=== PATIENT | female | born 1935 | race Caucasian/White ===

== ENCOUNTER 2022-08-29 08:46 | Inpatient (IN) | payer OTHER ==
[~2022-08-29] VITALS: Ht 167.6 cm; Wt 60.8 kg
[2022-08-29 08:50] VITALS: BP_SYST 172
[2022-08-29 09:39] LABS: BASOPHILS % (AUTO) 0.2 % (0.0-2.0); HEMATOCRIT 39.3 % (36-48); HEMOGLOBIN 12.7 g/dL (12.0-16.0); LYMPHOCYTES # (AUTO) 0.5 K/uL (1.0-5.5); LYMPHOCYTES % (AUTO) 4.5 % (20.5-51.5); MEAN CORPUSCULAR HEMOGLOBIN 27 pg (27-31); MEAN CORPUSCULAR HGB CONC 32 % (32-36); MEAN CORPUSCULAR VOLUME 83 fL (79.0-98.0); MONOCYTES # (AUTO) 0.2 K/uL (0.0-1.0); MONOCYTES % (AUTO) 1.9 % (1.7-9.3); NEUTROPHILS # (AUTO) 11.4 K/uL (1.8-7.7); NEUTROPHILS % (AUTO) 93.4 % (40.0-70.0); PLATELET COUNT (AUTO) 284 K/uL (130-430); RED BLOOD CELL COUNT(AUTO) 4.72 MIL/uL (4.2-6.2); RED CELL DISTRIBUTION WIDTH 13.7 % (9.0-15.0); WHITE BLOOD COUNT (AUTO) 12.2 K/uL (4.8-10.8)
[2022-08-29 09:58] LABS: PROTHROMBIN TIME 10.2 SECS (9.5-12.5)
[2022-08-29 10:05] LABS: ANION GAP 9 (5-15); CALCIUM 9.3 mg/dL (8.4-11.0); CHLORIDE 99 mmol/L (98-107); GLUCOSE 157 mg/dL (70-99); UREA NITROGEN, BLOOD 18 mg/dL (8-21)
[2022-08-29 10:16] LABS: ALANINE AMINOTRANSFERASE 24 U/L (12-78); ALBUMIN 3.8 g/dL (3.4-4.8); ALCOHOL, BLOOD 4 mg/dL (<10); ASPARTATE AMINOTRANSFERASE 19 U/L (10-37); TOTAL BILIRUBIN 0.4 mg/dL (0.0-1.0)
[2022-08-29 10:19] LABS: ACETAMINOPHEN < 1 ug/mL (1-30); C-REACTIVE PROTEIN QUANT < 0.2 mg/dL (0-0.5)
[2022-08-29 10:34] LABS: ACETONE, SERUM NEGATIVE (NEGATIVE)
[2022-08-29] MEDS ORDERED: LORazepam 2 MG/ML VIAL IVP ONE (11:15)
[2022-08-29] MEDS ORDERED: levETIRAcetam 1,000 MG in NS 90 ML IV ONE (11:15)
[2022-08-29 12:02] LABS: BILIRUBIN,URINE NEGATIVE (NEGATIVE); BLOOD, URINE NEGATIVE (NEGATIVE); COLOR,URINE YELLOW (YELLOW); GLUCOSE,URINE NEGATIVE (NEGATIVE); KETONES,URINE TRACE (NEGATIVE); LEUKOCYTE ESTERASE ,URINE TRACE (NEGATIVE); NITRITE, URINE NEGATIVE (NEGATIVE); PH,URINE 7.5 (5.0-8.0); PROTEIN URINE TRACE (NEGATIVE); UROBILINOGEN,URINE 0.2 (0.2-1.0)
[2022-08-29 12:17] LABS: BARBITURATE, URINE NEGATIVE (NEG <=200); BENZODIAZEPINE, URINE NEGATIVE (NEG <=150); CANNABINOID, URINE NEGATIVE (NEG <=50); COCAINE, URINE NEGATIVE (NEG <=150); METHAMPHETAMINES SCREEN,URINE NEGATIVE (NEG <=500); OPIATE, URINE NEGATIVE (NEG <=100); PHENCYCLIDINE SCREEN,URINE NEGATIVE (NEG <=25); UR TRICYCLIC ANTIDEPRESSANTS NEGATIVE (NEG <=300); URINE AMPHETAMINE NEGATIVE (NEG <=500); URINE METHADONE NEGATIVE (NEG <=200); URINE OXYCODONE SCREEN NEGATIVE (NEG <=100); URINE PROPOXYPHENE SCREEN NEGATIVE (NEG <=300)
[2022-08-29 12:18] LABS: CLARITY/URINE HAZY (CLEAR)
[2022-08-29 12:19] LABS: BACTERIA,URINE MODERATE /HPF (None Seen); RBC,URINE 0-3 /HPF (0-3)
[2022-08-29 12:20] LABS: MUCUS,URINE 1+ /LPF (None Seen)
[2022-08-29] MEDS ORDERED: D5/0.45 NS 1,000 ML IV ONE (13:45)
[2022-08-29] MEDS ORDERED: ACET325T53 PO (16:26)
[2022-08-29] MEDS ORDERED: FAMO40OR4 PO (16:26)
[2022-08-29] MEDS ORDERED: OSCD500 PO (16:26)
[2022-08-29] MEDS ORDERED: GABA-529 (16:41)
[2022-08-29] MEDS ORDERED: LOSA50TA3 PO (16:41)
[2022-08-29] MEDS ORDERED: SERT25TA PO (16:46)
[2022-08-29] MEDS ORDERED: MELA1TAB17 PO (16:46)
[2022-08-29] MEDS ORDERED: VERA120C2 PO (16:47)
[2022-08-29] MEDS ORDERED: LORazepam 2 MG/ML VIAL IVP PRN (21:15)
[2022-08-29] MEDS ORDERED: ONDANSETRON HCL 4 MG/2 ML VIAL IVP PRN (21:15)
[2022-08-29] MEDS ORDERED: LABETALOL 100 MG/ 20ML VIAL IVP PRN (22:00)
[2022-08-29 23:26] VITALS: BP_SYST 150
[2022-08-30] VITALS (7 sets, daily range): BP systolic 128–164
[2022-08-30 07:10] LABS: BASOPHILS % (AUTO) 0.2 % (0.0-2.0); EOSINOPHILS % (AUTO) 0.1 % (0.0-4.0); HEMOGLOBIN 11.5 g/dL (12.0-16.0); LYMPHOCYTES # (AUTO) 1.2 K/uL (1.0-5.5); LYMPHOCYTES % (AUTO) 8.7 % (20.5-51.5); MEAN CORPUSCULAR HEMOGLOBIN 27 pg (27-31); MEAN CORPUSCULAR HGB CONC 33 % (32-36); MEAN CORPUSCULAR VOLUME 83 fL (79.0-98.0); MONOCYTES # (AUTO) 1.6 K/uL (0.0-1.0); MONOCYTES % (AUTO) 10.9 % (1.7-9.3); NEUTROPHILS # (AUTO) 11.5 K/uL (1.8-7.7); NEUTROPHILS % (AUTO) 80.1 % (40.0-70.0); PLATELET COUNT (AUTO) 252 K/uL (130-430); RED BLOOD CELL COUNT(AUTO) 4.21 MIL/uL (4.2-6.2); RED CELL DISTRIBUTION WIDTH 13.7 % (9.0-15.0); WHITE BLOOD COUNT (AUTO) 14.4 K/uL (4.8-10.8)
[2022-08-30 07:24] LABS: ANION GAP 8 (5-15); CALCIUM 8.7 mg/dL (8.4-11.0); CHLORIDE 101 mmol/L (98-107); CREATININE 0.51 mg/dL (0.55-1.30); GLUCOSE 101 mg/dL (70-99); UREA NITROGEN, BLOOD 18 mg/dL (8-21)
[2022-08-30] MEDS ORDERED: IPRATROPIUM BROM 0.5 MG/2.5 ML VIAL.NEB (ATROVENT) INH PRN (11:00)
[2022-08-30] MEDS ORDERED: ALBUTEROL SULFATE 0.083% 2.5 MG/3 ML VIAL.NEB INH PRN (11:00)
[2022-08-30] MEDS ORDERED: ONDANSETRON HCL 4 MG/2 ML VIAL IVP PRN (11:00)
[2022-08-30] MEDS: cefTRIAXone 1 GM IVPB PREMIX 50 ML IV SCH (12:15)
[2022-08-30] MEDS ORDERED: AZITHROMYCIN 500 MG in NS 250 ML IV SCH (13:00)
[2022-08-30] MEDS: D5/0.45 NS 1,000 ML IV SCH (18:11)
[2022-08-30] MEDS ORDERED: LOSARTAN POTASSIUM 50 MG TABLET (COZAAR) PO ONE (20:45)
[2022-08-30] MEDS: metroNIDAZOLE 250 mg/NS 50 ML IV SCH (21:07)
[2022-08-31 00:32] VITALS: BP_SYST 145
[2022-08-31] MEDS: D5/0.45 NS 1,000 ML IV SCH ×3 (04:38→18:22)
[2022-08-31] MEDS: metroNIDAZOLE 250 mg/NS 50 ML IV SCH ×3 (05:49→21:41)
[2022-08-31 07:18] LABS: BASOPHILS % (AUTO) 0.5 % (0.0-2.0); EOSINOPHILS % (AUTO) 0.3 % (0.0-4.0); HEMATOCRIT 35.6 % (36-48); HEMOGLOBIN 11.9 g/dL (12.0-16.0); LYMPHOCYTES # (AUTO) 1.3 K/uL (1.0-5.5); LYMPHOCYTES % (AUTO) 13.2 % (20.5-51.5); MEAN CORPUSCULAR HEMOGLOBIN 28 pg (27-31); MEAN CORPUSCULAR HGB CONC 33 % (32-36); MEAN CORPUSCULAR VOLUME 83 fL (79.0-98.0); MONOCYTES # (AUTO) 0.9 K/uL (0.0-1.0); MONOCYTES % (AUTO) 9.6 % (1.7-9.3); NEUTROPHILS # (AUTO) 7.4 K/uL (1.8-7.7); NEUTROPHILS % (AUTO) 76.4 % (40.0-70.0); PLATELET COUNT (AUTO) 276 K/uL (130-430); RED BLOOD CELL COUNT(AUTO) 4.28 MIL/uL (4.2-6.2); RED CELL DISTRIBUTION WIDTH 13.4 % (9.0-15.0); WHITE BLOOD COUNT (AUTO) 9.7 K/uL (4.8-10.8)
[2022-08-31 08:05] VITALS: BP_SYST 178
[2022-08-31 08:40] LABS: ALANINE AMINOTRANSFERASE 19 U/L (12-78); ANION GAP 10 (5-15); ASPARTATE AMINOTRANSFERASE 31 U/L (10-37); CALCIUM 8.5 mg/dL (8.4-11.0); CHLORIDE 105 mmol/L (98-107); CREATININE 0.32 mg/dL (0.55-1.30); GLUCOSE 117 mg/dL (70-99); TOTAL BILIRUBIN 0.5 mg/dL (0.0-1.0); UREA NITROGEN, BLOOD 9 mg/dL (8-21)
[2022-08-31] MEDS: LOSARTAN POTASSIUM 50 MG TABLET (COZAAR) PO SCH (08:51)
[2022-08-31] MEDS ORDERED: LOSARTAN POTASSIUM 50 MG TABLET (COZAAR) PO SCH (10:00)
[2022-08-31] MEDS ORDERED: ACETAMINOPHEN 325 MG TABLET PO PRN (10:00)
[2022-08-31] MEDS ORDERED: FAMOTIDINE 20 MG TABLET PO ONE (11:00)
[2022-08-31] MEDS ORDERED: SERTRALINE HCL 50 MG TABLET PO ONE (11:00)
[2022-08-31 11:10] VITALS: BP_SYST 157
[2022-08-31] MEDS: cefTRIAXone 1 GM IVPB PREMIX 50 ML IV SCH (12:00)
[2022-08-31 15:45] VITALS: BP_SYST 161
[2022-08-31] MEDS: GABAPENTIN 100 MG CAPSULE PO SCH (18:18)
[2022-08-31 20:00] VITALS: BP_SYST 158
[2022-08-31] MEDS ORDERED: MELATONIN 5 MG TABLET PO SCH (21:00)
[2022-08-31] MEDS: VERAPAMIL HCL 120 MG TABLET.SA PO SCH (21:39)
[2022-08-31] MEDS: CALCIUM CARBONATE/VITAMIN D3 1 TAB TABLET PO SCH (21:40)
[2022-09-01 00:17] VITALS: BP_SYST 136
[2022-09-01] MEDS: D5/0.45 NS 1,000 ML IV SCH (03:20)
[2022-09-01] MEDS: metroNIDAZOLE 250 mg/NS 50 ML IV SCH ×2 (05:51→14:59)
[2022-09-01 08:00] VITALS: BP_SYST 154
[2022-09-01 08:16] LABS: BASOPHILS # (AUTO) 0.1 K/uL (0.0-0.2); BASOPHILS % (AUTO) 0.5 % (0.0-2.0); EOSINOPHILS # (AUTO) 0.1 K/uL (0.0-0.4); EOSINOPHILS % (AUTO) 0.9 % (0.0-4.0); HEMATOCRIT 36.4 % (36-48); LYMPHOCYTES # (AUTO) 1.3 K/uL (1.0-5.5); LYMPHOCYTES % (AUTO) 10.7 % (20.5-51.5); MEAN CORPUSCULAR HEMOGLOBIN 27 pg (27-31); MEAN CORPUSCULAR HGB CONC 33 % (32-36); MEAN CORPUSCULAR VOLUME 83 fL (79.0-98.0); MONOCYTES # (AUTO) 1.3 K/uL (0.0-1.0); MONOCYTES % (AUTO) 10.5 % (1.7-9.3); NEUTROPHILS # (AUTO) 9.6 K/uL (1.8-7.7); NEUTROPHILS % (AUTO) 77.4 % (40.0-70.0); PLATELET COUNT (AUTO) 281 K/uL (130-430); RED BLOOD CELL COUNT(AUTO) 4.38 MIL/uL (4.2-6.2); RED CELL DISTRIBUTION WIDTH 13.3 % (9.0-15.0); WHITE BLOOD COUNT (AUTO) 12.4 K/uL (4.8-10.8)
[2022-09-01 08:42] LABS: ANION GAP 8 (5-15); C-REACTIVE PROTEIN QUANT 0.6 mg/dL (0-0.5); CALCIUM 8.9 mg/dL (8.4-11.0); CHLORIDE 105 mmol/L (98-107); CREATININE 0.39 mg/dL (0.55-1.30); GLUCOSE 122 mg/dL (70-99); UREA NITROGEN, BLOOD 9 mg/dL (8-21)
[2022-09-01] MEDS: VERAPAMIL HCL 120 MG TABLET.SA PO SCH (08:48)
[2022-09-01] MEDS: LOSARTAN POTASSIUM 50 MG TABLET (COZAAR) PO SCH (08:49)
[2022-09-01] MEDS: CALCIUM CARBONATE/VITAMIN D3 1 TAB TABLET PO SCH (08:49)
[2022-09-01] MEDS ORDERED: LOSARTAN POTASSIUM 50 MG TABLET (COZAAR) PO SCH (09:00)
[2022-09-01] MEDS ORDERED: FAMOTIDINE 20 MG TABLET PO SCH (09:00)
[2022-09-01] MEDS ORDERED: SERTRALINE HCL 50 MG TABLET PO SCH (09:00)
[2022-09-01] MEDS ORDERED: POTASSIUM CHLORIDE 20 MEQ TAB.PRT.SR PO ONE (10:45)
[2022-09-01 10:46] LABS: ERYTHROCYTE SEDIMENTATION RATE 9 MM/HR (0-20)
[2022-09-01] MEDS: cefTRIAXone 1 GM IVPB PREMIX 50 ML IV SCH (11:39)
[2022-09-01 12:32] VITALS: BP_SYST 140; BP_SYST 154
[2022-09-01] MEDS ORDERED: NORMAL SALINE 5 ML DISP.SYRIN IVF SCH (14:00)
[2022-09-01 16:31] VITALS: BP_SYST 145
[2022-09-01 16:52] VITALS: BP_SYST 145
[2022-09-01] MEDS ORDERED: ROCPM1 IV (16:52)
[2022-09-01] MEDS ORDERED: FLAPM500 IV (16:52)
[2022-09-01] MEDS: GABAPENTIN 100 MG CAPSULE PO SCH (18:05)
== END 2022-09-01 21:23 | DRG 871 ==
LOC: SED 08:46 → STU 13:36
PROVIDERS: ADMIT Preventive Medicine Preventive Medicine/Occupational Environmental Medicine; ATTEND Preventive Medicine Preventive Medicine/Occupational Environmental Medicine
DX: A41.9 Sepsis, unspecified organism (principal); J69.0 Pneumonitis due to inhalation of food and vomit; N39.0 Urinary tract infection, site not specified; E87.20 Acidosis, unspecified; Z20.822 Contact with and (suspected) exposure to COVID-19; I10 Essential (primary) hypertension; E78.5 Hyperlipidemia, unspecified; F03.90 Unspecified dementia, unspecified severity, without behavioral disturbance, psychotic disturbance, mood disturbance, and anxiety; B96.89 Other specified bacterial agents as the cause of diseases classified elsewhere; D64.9 Anemia, unspecified; E87.6 Hypokalemia; E88.09 Other disorders of plasma-protein metabolism, not elsewhere classified; G40.909 Epilepsy, unspecified, not intractable, without status epilepticus; R73.9 Hyperglycemia, unspecified; Z88.8 Allergy status to other drugs, medicaments and biological substances
CPT/HCPCS: 36415; 70450-TC; 71045; 76376; 80048; 80053; 80307; 81000; 82009; 82140; 82550; 83605; 83735; 83880; 84484; 85025; 85610-TC; 85651-TC; 85730-TC; 86140; 87040; 87081; 87086; 92610-GN; 93005; 93306; 95816; 97110-GP; 97112-GP; 97530-GP; 99285; G0378; G0480; G0481; G0482; J0456; J0696; J1953; J2060; J3490; J7050

== ENCOUNTER 2022-09-26 16:51 | Inpatient (IN) | payer OTHER ==
[~2022-09-26] VITALS: Ht 160 cm; Wt 65.3 kg
[~2022-09-26 16:51] MED LIST: ACET325T53 PO; FAMO40OR4 PO; FLAPM500 IV; GABA-529; LOSA50TA3 PO; MELA1TAB17 PO; OSCD500 PO; ROCPM1 IV; SERT25TA PO; VERA120C2 PO
[2022-09-26 16:53] VITALS: BP_SYST 156
[2022-09-26] MEDS ORDERED: MULT-300 PO (17:15)
[2022-09-26] MEDS ORDERED: LACT10SO7 PO (17:15)
[2022-09-26] MEDS ORDERED: ALBU2.5V7 INH (17:15)
[2022-09-26] MEDS ORDERED: ONDA-8 TL (17:15)
[2022-09-26] MEDS ORDERED: VITD2000 PO (17:15)
--- NOTE | 2022-09-26 17:15 | NUR ---
Medication reconciliation completed with information provided by [facility]. Any prior medication reconciliation on file was reviewed and corrected.
--- NOTE | 2022-09-26 17:20 | NUR ---
PT BIBA AWAKE AND CONFUSED, AOX1. PT COMING FROM [facility] AFTER AN SEIZURE IN THE FACILITY.
--- NOTE | 2022-09-26 17:25 | NUR ---
MD DR LAW AT BEDSIDE
[2022-09-26 17:43] LABS: BASOPHILS % (AUTO) 0.1 % (0.0-2.0); HEMATOCRIT 39.8 % (36-48); HEMOGLOBIN 13.1 g/dL (12.0-16.0); LYMPHOCYTES # (AUTO) 0.4 K/uL (1.0-5.5); LYMPHOCYTES % (AUTO) 2.5 % (20.5-51.5); MEAN CORPUSCULAR HEMOGLOBIN 28 pg (27-31); MEAN CORPUSCULAR HGB CONC 33 % (32-36); MEAN CORPUSCULAR VOLUME 84 fL (79.0-98.0); MONOCYTES # (AUTO) 0.3 K/uL (0.0-1.0); MONOCYTES % (AUTO) 2.1 % (1.7-9.3); NEUTROPHILS # (AUTO) 15.5 K/uL (1.8-7.7); NEUTROPHILS % (AUTO) 95.3 % (40.0-70.0); PLATELET COUNT (AUTO) 285 K/uL (130-430); RED BLOOD CELL COUNT(AUTO) 4.74 MIL/uL (4.2-6.2); RED CELL DISTRIBUTION WIDTH 14.1 % (9.0-15.0); WHITE BLOOD COUNT (AUTO) 16.3 K/uL (4.8-10.8)
[2022-09-26 17:54] LABS: ANION GAP 10 (5-15); CALCIUM 9.9 mg/dL (8.4-11.0); CHLORIDE 98 mmol/L (98-107); CREATININE 0.47 mg/dL (0.55-1.30); GLUCOSE 168 mg/dL (70-99); UREA NITROGEN, BLOOD 13 mg/dL (8-21)
[2022-09-26 17:56] LABS: PROTHROMBIN TIME 10.4 SECS (9.5-12.5)
[2022-09-26 18:11] LABS: ALANINE AMINOTRANSFERASE 30 U/L (12-78); ALBUMIN 3.7 g/dL (3.4-4.8); ALCOHOL, BLOOD 3 mg/dL (<10); ASPARTATE AMINOTRANSFERASE 29 U/L (10-37); TOTAL BILIRUBIN 0.5 mg/dL (0.0-1.0)
[2022-09-26 18:28] LABS: ACETAMINOPHEN < 1 ug/mL (1-30); C-REACTIVE PROTEIN QUANT < 0.2 mg/dL (0-0.5)
[2022-09-26 18:50] LABS: ACETONE, SERUM NEGATIVE (NEGATIVE)
[2022-09-26 19:08] LABS: BILIRUBIN,URINE NEGATIVE (NEGATIVE); BLOOD, URINE 1+ (NEGATIVE); COLOR,URINE YELLOW (YELLOW); GLUCOSE,URINE NEGATIVE (NEGATIVE); KETONES,URINE 1+ (NEGATIVE); LEUKOCYTE ESTERASE ,URINE 1+ (NEGATIVE); NITRITE, URINE NEGATIVE (NEGATIVE); PROTEIN URINE 1+ (NEGATIVE); UROBILINOGEN,URINE 0.2 (0.2-1.0)
[2022-09-26] MEDS ORDERED: PIPERACILLIN/TAZO 4.5GM/DEX-IS 100 ML IV SCH (19:30)
[2022-09-26] MEDS ORDERED: PIPERACILLIN/TAZO 4.5GM/DEX-IS 100 ML IV ONE (19:30)
[2022-09-26 19:31] LABS: CLARITY/URINE HAZY (CLEAR)
[2022-09-26 19:35] LABS: BARBITURATE, URINE NEGATIVE (NEG <=200); BENZODIAZEPINE, URINE NEGATIVE (NEG <=150); CANNABINOID, URINE NEGATIVE (NEG <=50); COCAINE, URINE NEGATIVE (NEG <=150); METHAMPHETAMINES SCREEN,URINE NEGATIVE (NEG <=500); OPIATE, URINE NEGATIVE (NEG <=100); PHENCYCLIDINE SCREEN,URINE NEGATIVE (NEG <=25); UR TRICYCLIC ANTIDEPRESSANTS NEGATIVE (NEG <=300); URINE AMPHETAMINE NEGATIVE (NEG <=500); URINE METHADONE NEGATIVE (NEG <=200); URINE OXYCODONE SCREEN NEGATIVE (NEG <=100); URINE PROPOXYPHENE SCREEN NEGATIVE (NEG <=300)
[2022-09-26 19:36] LABS: BACTERIA,URINE FEW /HPF (None Seen); RBC,URINE NONE SEEN /HPF (0-3)
[2022-09-26 19:37] LABS: MUCUS,URINE None Seen /LPF (None Seen)
[2022-09-26] MEDS ORDERED: LORazepam 2 MG/ML VIAL IVP PRN (19:45)
[2022-09-26] MEDS ORDERED: PIPERACILLIN/TAZOBACTAM 4.5 GM/VIAL (ZOSYN) IV ONE (19:47)
[2022-09-26] MEDS ORDERED: VANCOMYCIN HCL 750 MG in NS 250 ML IV ONE (20:00)
--- NOTE | 2022-09-26 20:21 | NUR ---
Admit bed requested Patient will be admitted to care of . Admitted to TELE unit. Diagnosis : SEPSIS/ SEIZURE DISORDER Inpatient (Yes or No) Y Observation (Yes or No) N Orientation concerns or request close to nursing station (Yes or No) N Covid Status : PENDING From Home (Yes or if No enter name of facility) [facility] Med Rec Completed (Yes of No) Y
--- NOTE | 2022-09-26 20:22 | NUR ---
DAUGHTER ANAPATRICIA AT BEDSIDE. CELL
[2022-09-26] MEDS: D5/0.45 NS 1,000 ML IV SCH (20:37)
--- NOTE | 2022-09-26 23:50 | NUR ---
Patient will be admitted to care of MD SLOAN. Admitted to TELE unit. Will go to room 13B. Complete and up to date summary report printed. SBAR report given at bedside to receiving RN Dl with opportunity for questions.
[2022-09-27] VITALS (7 sets, daily range): BP systolic 120–156
--- NOTE | 2022-09-27 00:30 | NUR ---
RECEIVED REPORT FROM ASHLEY PANIAGUA ADMITTING NURSE, PATIENT IN BED SLEEPING, NO DISTRESS NOTED, NO SEIZURE ACTIVITY NOTED, COMFORT MAINTAINED, LEFT ARM IV NOT PATENT, REMOVED AND RESTARTED 20G LEFT LOWER ARM, GOOD BLOOD RETURN, PATIENT CONFUSED, PATIENT DEAF PER DAUGHTER, PATIENT DAUGHTER CALLED AND SPOKE WITH NURSE, SKIN INTACT, MRSA NARES COMPLETED, SEIZURES WITH SIDE RAILS PADDED AND BED ALARM ON
[2022-09-27] MEDS: D5/0.45 NS 1,000 ML IV SCH ×3 (02:44→22:53)
--- NOTE | 2022-09-27 02:51 | NUR ---
PATIENT WITH EYES CLOSED, NO DISTRESS NOTED, COMFORT MAINTAINED, NO SEIZURE ACTIVITY NOTED
--- NOTE | 2022-09-27 03:02 | NUR ---
ADMISSION ASSESSMENT COMPLETE AND MRSA NASAL SWAB COMPLETE
--- NOTE | 2022-09-27 06:28 | NUR ---
NO SEIZURE ACTIVITY NOTED, PATIENT SLEEPING, REPOSITION Q2HRS AND PRN, TOTAL CARE WITH ADL, NPO PER ORDERS
--- NOTE | 2022-09-27 07:30 | NUR ---
OPENING NOTE Patient in bed resting with no apparent distress or pain. Patient calm and cooperative with her care. Patient is nonverbal, and has a hx of deafness. Breathing is nonlabored and even. No seizure activity noted, seizure precautions are in place. All needs met at this time and comfort measures provided. Safety checks made.
[2022-09-27] MEDS ORDERED: ACETAMINOPHEN 325 MG TABLET PO PRN (11:30)
[2022-09-27] MEDS ORDERED: ONDANSETRON 4 MG ODT TAB TL PRN (11:30)
[2022-09-27] MEDS ORDERED: ONDANSETRON HCL 4 MG/2 ML VIAL IVP PRN (11:30)
[2022-09-27] MEDS ORDERED: ALBUTEROL SULFATE 0.083% 2.5 MG/3 ML VIAL.NEB INH PRN (11:30)
--- NOTE | 2022-09-27 11:43 | NUR ---
CONSULTATION PAGED7 REASON FOR CONSULTATION:SEPSIS WAS CONSULT CALLED?Y PERSON WHO WAS NOTIFIED:AMIRA CONSULTING PHYSICIAN:AZALEA MANUEL STATISTICAL SECRETARY SPECIALTY:ID STATISTICAL SECRETARY PHONE NUMBER:[phone] REQUESTING PHYSICIAN:BRANDON MAXWELL
[2022-09-27] MEDS ORDERED: LOSARTAN POTASSIUM 50 MG TABLET (COZAAR) PO ONE ×2 (11:45→12:45)
[2022-09-27] MEDS ORDERED: SERTRALINE HCL 50 MG TABLET PO ONE (13:00)
[2022-09-27] MEDS: CHOLECALCIFEROL (VITAMIN D3) 2,000 UNIT TABLET PO ONE ×2 (13:30→16:38)
--- NOTE | 2022-09-27 13:39 | NUR ---
SPOKE WITH DAUGHTER Spoke with patient's daughters and provided an update on the patient. Verbalized understanding of the plan of care.
[2022-09-27] MEDS ORDERED: metroNIDAZOLE 500 mg/NS 100 ML PREMIX IV SCH (14:00)
[2022-09-27] MEDS ORDERED: cefTRIAXone 1 GM IVPB PREMIX 50 ML IV SCH (14:00)
[2022-09-27] MEDS ORDERED: metroNIDAZOLE 500 mg/NS 100 mL IVPB IV SCH (14:00)
[2022-09-27] MEDS: CEFTRIAXONE SOD 1 GM/ D5W 50 ML IV SCH ×2 (14:59)
[2022-09-27] MEDS: GABAPENTIN 100 MG CAPSULE PO SCH ×2 (16:38→16:52)
[2022-09-27] MEDS: LACTULOSE 20 GM/30 ML UDC PO SCH ×2 (16:52→23:16)
--- NOTE | 2022-09-27 16:52 | NUR ---
MEDICATION REFUSAL Patient adamantly refused medications. Medications were crushed in a small bite of pudding. Patient refused to open her mouth to receive the spoon. Patient shook her head no. Attempted to educate the patient by writing on a paper, her preferred method of communication, but patient continued to refuse.
[2022-09-27] MEDS ORDERED: VERAPAMIL HCL 120 MG TABLET.SA PO ONE (17:45)
--- NOTE | 2022-09-27 17:55 | NUR ---
ST EVALUATION COMPLETED. ST TX NOT INDICATED AT THIS TIME. RECOMMEND PO DIET OF PUREE/THIN LIQUID. PT LIKES TO FEED HERSELF BUT WILL LIKELY NEED ENCOURAGEMENT AND ASSISTANCE. 1:1 ASSISTANCE FOR MEALS AND FULL ASPIRATION PRECAUTIONS
[2022-09-27 18:23] LABS: BASOPHILS # (AUTO) 0.1 K/uL (0.0-0.2); BASOPHILS % (AUTO) 0.3 % (0.0-2.0); EOSINOPHILS % (AUTO) 0.1 % (0.0-4.0); LYMPHOCYTES # (AUTO) 1.4 K/uL (1.0-5.5); LYMPHOCYTES % (AUTO) 9.5 % (20.5-51.5); MEAN CORPUSCULAR HEMOGLOBIN 27 pg (27-31); MEAN CORPUSCULAR HGB CONC 32 % (32-36); MEAN CORPUSCULAR VOLUME 84 fL (79.0-98.0); MONOCYTES # (AUTO) 1.9 K/uL (0.0-1.0); MONOCYTES % (AUTO) 13.1 % (1.7-9.3); NEUTROPHILS # (AUTO) 11.1 K/uL (1.8-7.7); PLATELET COUNT (AUTO) 241 K/uL (130-430); RED BLOOD CELL COUNT(AUTO) 4.06 MIL/uL (4.2-6.2); RED CELL DISTRIBUTION WIDTH 13.9 % (9.0-15.0); WHITE BLOOD COUNT (AUTO) 14.4 K/uL (4.8-10.8)
--- NOTE | 2022-09-27 18:59 | NUR ---
CLOSING NOTE Patient resting in bed, no sign of distress or pain. Patient continues to be nonverbal with difficulty communicating. Patient has refused her medications because she is unwilling to open her mouth. Unable to communicate effectively with the patient due to hx of deafness and her eyeglasses being at home and her unable to read the communication notes. Patient's daughter states she will bring the glasses to the hospital when she visits. Family has been updated on the plan of care, verbalized understanding. Patient's breathing is nonlabored and even on room air; patient refused to wear her nasal cannula. All needs met at this time and safety checks made. Will endorse to overnight babysitter nurse.
[2022-09-27] MEDS ORDERED: VERAPAMIL HCL 120 MG TABLET.SA PO SCH (21:00)
--- NOTE | 2022-09-27 22:00 | NUR ---
PATIENT DAUGHTER AT BEDSIDE, NO DISTRESS NOTED, COMFORT MAINTAINED, PATIENT PULLED LEFT ARM IV OUT, RESITED AND PLACED A LEFT ARM IV, PATIENT INCONTINENT, PERICARE GIVEN, DAUGHTER BOUGHT PATIENTS GLASSES AND WHITE BOARD WITH MARKER TO COMMUNICATE, PATIENT LEGALLY DEAF, PATIENT TOOK ALL PO MEDICATIONS WHOLE WITH JUICE, PATIENT ALERT AND ORIENTED TO SELF AND PLACE, CONFUSED REGARDING HER RELATIONSHIP TO DAUGHTER, BED ALARM SET
[2022-09-27] MEDS: levETIRAcetam 500 MG TABLET PO SCH (22:52)
[2022-09-27] MEDS: metroNIDAZOLE 500 mg/NS 100 ML IV SCH (22:52)
[2022-09-27] MEDS: FAMOTIDINE 20 MG TABLET PO SCH (22:52)
[2022-09-27] MEDS: CALCIUM CARBONATE/VITAMIN D3 1 TAB TABLET PO SCH (22:53)
[2022-09-27] MEDS: MELATONIN 5 MG TABLET PO SCH (23:16)
[2022-09-28 01:10] VITALS: BP_SYST 182
[2022-09-28 05:00] VITALS: BP_SYST 150
[2022-09-28] MEDS: LACTULOSE 20 GM/30 ML UDC PO SCH ×3 (06:00→18:00)
--- NOTE | 2022-09-28 06:00 | NUR ---
NO DISTRESS NOTED, COMFORT MAINTAINED, PATIENT SLEPT ALL NIGHT
[2022-09-28 07:01] LABS: BASOPHILS # (AUTO) 0.1 K/uL (0.0-0.2); BASOPHILS % (AUTO) 0.4 % (0.0-2.0); HEMATOCRIT 34.5 % (36-48); HEMOGLOBIN 11.8 g/dL (12.0-16.0); LYMPHOCYTES # (AUTO) 1.1 K/uL (1.0-5.5); LYMPHOCYTES % (AUTO) 8.3 % (20.5-51.5); MEAN CORPUSCULAR HEMOGLOBIN 28 pg (27-31); MEAN CORPUSCULAR HGB CONC 34 % (32-36); MEAN CORPUSCULAR VOLUME 83 fL (79.0-98.0); MONOCYTES # (AUTO) 1.6 K/uL (0.0-1.0); MONOCYTES % (AUTO) 12.3 % (1.7-9.3); NEUTROPHILS # (AUTO) 10.3 K/uL (1.8-7.7); PLATELET COUNT (AUTO) 229 K/uL (130-430); RED BLOOD CELL COUNT(AUTO) 4.14 MIL/uL (4.2-6.2); RED CELL DISTRIBUTION WIDTH 14.2 % (9.0-15.0); WHITE BLOOD COUNT (AUTO) 13.1 K/uL (4.8-10.8)
[2022-09-28 07:51] LABS: ERYTHROCYTE SEDIMENTATION RATE 41 MM/HR (0-20)
[2022-09-28 09:00] LABS: ALANINE AMINOTRANSFERASE 30 U/L (12-78); ANION GAP 7 (5-15); ASPARTATE AMINOTRANSFERASE 34 U/L (10-37); C-REACTIVE PROTEIN QUANT 1.5 mg/dL (0-0.5); CALCIUM 8.6 mg/dL (8.4-11.0); CHLORIDE 102 mmol/L (98-107); GLUCOSE 115 mg/dL (70-99); TOTAL BILIRUBIN 0.4 mg/dL (0.0-1.0); UREA NITROGEN, BLOOD 10 mg/dL (8-21)
[2022-09-28] MEDS: levETIRAcetam 500 MG TABLET PO SCH (10:05)
[2022-09-28] MEDS: VERAPAMIL HCL 120 MG TABLET.SA PO SCH (10:06)
[2022-09-28] MEDS: MULTIVITS,CA,MINERALS/IRON/FA 1 TABLET PO SCH (10:07)
[2022-09-28] MEDS: CHOLECALCIFEROL (VITAMIN D3) 2,000 UNIT TABLET PO SCH (10:07)
[2022-09-28] MEDS: LOSARTAN POTASSIUM 50 MG TABLET (COZAAR) PO SCH (10:08)
[2022-09-28] MEDS: SERTRALINE HCL 50 MG TABLET PO SCH (10:09)
[2022-09-28] MEDS: metroNIDAZOLE 500 mg/NS 100 ML IV SCH ×2 (10:10→22:26)
[2022-09-28] MEDS ORDERED: POTASSIUM CHLORIDE 20 MEQ TAB.PRT.SR PO ONE (11:00)
[2022-09-28] MEDS ORDERED: LORazepam 2 MG/ML VIAL IVP ONE (11:30)
[2022-09-28 12:21] VITALS: BP_SYST 167
--- NOTE | 2022-09-28 15:19 | NUR ---
RN DID NOT CLEAR PATIENT FOR PT PATIENT IS STILL SEDATED FROM EEG. WILL TRY AGAIN TOMORROW. Addendum: 09/28/22 at 1731 by Kym Perkins PT PHYSICAL THERAPY CO-SIGN The Physical Therapy Progress Notes documented by System Archive Analyst have been reviewed. Reviewed/Co-Signed by: Kym Perkins PT Documentation Done by:BUD RADFORD PTA
[2022-09-28] MEDS: CEFTRIAXONE SOD 1 GM/ D5W 50 ML IV SCH ×2 (16:38)
[2022-09-28] MEDS: GABAPENTIN 100 MG CAPSULE PO SCH (17:00)
[2022-09-28 17:12] VITALS: BP_SYST 151
[2022-09-28] MEDS: CALCIUM CARBONATE/VITAMIN D3 1 TAB TABLET PO SCH ×2 (18:36→22:07)
[2022-09-28] MEDS ORDERED: levETIRAcetam 500 MG TABLET PO ONE (19:30)
[2022-09-28] MEDS: D5/0.45 NS 1,000 ML IV SCH ×2 (19:44→22:54)
[2022-09-28 20:00] VITALS: BP_SYST 148
[2022-09-28] MEDS: FAMOTIDINE 20 MG TABLET PO SCH (22:08)
[2022-09-28] MEDS: MELATONIN 5 MG TABLET PO SCH (22:51)
[2022-09-29] VITALS: BP_SYST 172
[2022-09-29] MEDS: LACTULOSE 20 GM/30 ML UDC PO SCH ×4 (00:16→17:14)
[2022-09-29] MEDS ORDERED: LISINOPRIL 10 MG TABLET (PRINIVIL) PO SCH (00:45)
[2022-09-29] MEDS: D5/0.45 NS 1,000 ML IV SCH (06:31)
[2022-09-29 08:00] VITALS: BP_SYST 159
[2022-09-29 08:22] LABS: ANION GAP 6 (5-15); BASOPHILS # (AUTO) 0.1 K/uL (0.0-0.2); BASOPHILS % (AUTO) 0.3 % (0.0-2.0); C-REACTIVE PROTEIN QUANT 8.3 mg/dL (0-0.5); CALCIUM 8.7 mg/dL (8.4-11.0); CHLORIDE 99 mmol/L (98-107); CREATININE 0.48 mg/dL (0.55-1.30); EOSINOPHILS % (AUTO) 0.1 % (0.0-4.0); GLUCOSE 123 mg/dL (70-99); HEMATOCRIT 37.9 % (36-48); HEMOGLOBIN 12.7 g/dL (12.0-16.0); LYMPHOCYTES # (AUTO) 1.1 K/uL (1.0-5.5); LYMPHOCYTES % (AUTO) 6.5 % (20.5-51.5); MEAN CORPUSCULAR HEMOGLOBIN 28 pg (27-31); MEAN CORPUSCULAR HGB CONC 33 % (32-36); MEAN CORPUSCULAR VOLUME 83 fL (79.0-98.0); MONOCYTES # (AUTO) 1.8 K/uL (0.0-1.0); MONOCYTES % (AUTO) 10.3 % (1.7-9.3); NEUTROPHILS # (AUTO) 14.3 K/uL (1.8-7.7); NEUTROPHILS % (AUTO) 82.8 % (40.0-70.0); PLATELET COUNT (AUTO) 236 K/uL (130-430); RED BLOOD CELL COUNT(AUTO) 4.57 MIL/uL (4.2-6.2); RED CELL DISTRIBUTION WIDTH 13.9 % (9.0-15.0); UREA NITROGEN, BLOOD 7 mg/dL (8-21); WHITE BLOOD COUNT (AUTO) 17.2 K/uL (4.8-10.8)
[2022-09-29] MEDS: VERAPAMIL HCL 120 MG TABLET.SA PO SCH (08:24)
[2022-09-29] MEDS: SERTRALINE HCL 50 MG TABLET PO SCH (08:31)
[2022-09-29] MEDS: HYDROCHLOROTHIAZIDE 25 MG TABLET (HCTZ) PO SCH (08:31)
[2022-09-29] MEDS: LOSARTAN POTASSIUM 50 MG TABLET (COZAAR) PO SCH (08:31)
[2022-09-29] MEDS: CHOLECALCIFEROL (VITAMIN D3) 2,000 UNIT TABLET PO SCH (08:31)
[2022-09-29] MEDS: CALCIUM CARBONATE/VITAMIN D3 1 TAB TABLET PO SCH ×2 (08:31→20:56)
[2022-09-29] MEDS: MULTIVITS,CA,MINERALS/IRON/FA 1 TABLET PO SCH (08:31)
[2022-09-29 09:27] LABS: ERYTHROCYTE SEDIMENTATION RATE 42 MM/HR (0-20)
--- NOTE | 2022-09-29 09:42 | NUR ---
Dietitian Recommendations * If PO improves, consider Puree & CCHO diet. * Consider HB A1c test * Encourage PO intake during meal times. Co-Signed By: Vanessa Cameron, MPH, RD Please refer to Nutrition Assessment for details.
[2022-09-29] MEDS: metroNIDAZOLE 500 mg/NS 100 ML IV SCH (09:43)
[2022-09-29] MEDS ORDERED: POTASSIUM CHLORIDE 20 MEQ TAB.PRT.SR PO ONE (10:30)
[2022-09-29 11:38] VITALS: BP_SYST 155
[2022-09-29] MEDS: CEFTRIAXONE SOD 1 GM/ D5W 50 ML IV SCH ×2 (14:04)
[2022-09-29 15:44] VITALS: BP_SYST 123
[2022-09-29] MEDS: GABAPENTIN 100 MG CAPSULE PO SCH (17:14)
[2022-09-29 20:00] VITALS: BP_SYST 143
[2022-09-29] MEDS: LINEZOLID 300 ML IV SCH (20:55)
[2022-09-29] MEDS: MELATONIN 5 MG TABLET PO SCH (20:55)
[2022-09-29] MEDS: FAMOTIDINE 20 MG TABLET PO SCH (20:56)
[2022-09-30] VITALS: BP_SYST 137
[2022-09-30] MEDS: LACTULOSE 20 GM/30 ML UDC PO SCH ×5 (01:08→23:10)
[2022-09-30 04:00] VITALS: BP_SYST 141
[2022-09-30 07:43] LABS: HEMATOCRIT 35.8 % (36-48); MEAN CORPUSCULAR HEMOGLOBIN 27 pg (27-31); MEAN CORPUSCULAR HGB CONC 34 % (32-36); MEAN CORPUSCULAR VOLUME 82 fL (79.0-98.0); PLATELET COUNT (AUTO) 236 K/uL (130-430); RED BLOOD CELL COUNT(AUTO) 4.38 MIL/uL (4.2-6.2); RED CELL DISTRIBUTION WIDTH 13.6 % (9.0-15.0); WHITE BLOOD COUNT (AUTO) 16.9 K/uL (4.8-10.8)
[2022-09-30 08:12] VITALS: BP_SYST 186
[2022-09-30 08:26] LABS: ALANINE AMINOTRANSFERASE 21 U/L (12-78); ALBUMIN 2.7 g/dL (3.4-4.8); ANION GAP 9 (5-15); ASPARTATE AMINOTRANSFERASE 17 U/L (10-37); C-REACTIVE PROTEIN QUANT 16.4 mg/dL (0-0.5); CHLORIDE 100 mmol/L (98-107); CREATININE 0.46 mg/dL (0.55-1.30); GLUCOSE 114 mg/dL (70-99); TOTAL BILIRUBIN 0.6 mg/dL (0.0-1.0); UREA NITROGEN, BLOOD 6 mg/dL (8-21)
[2022-09-30] MEDS: LOSARTAN POTASSIUM 50 MG TABLET (COZAAR) PO SCH (10:01)
[2022-09-30] MEDS: MULTIVITS,CA,MINERALS/IRON/FA 1 TABLET PO SCH (10:02)
[2022-09-30] MEDS: SERTRALINE HCL 50 MG TABLET PO SCH (10:02)
[2022-09-30] MEDS: VERAPAMIL HCL 120 MG TABLET.SA PO SCH (10:03)
[2022-09-30] MEDS: CALCIUM CARBONATE/VITAMIN D3 1 TAB TABLET PO SCH ×2 (10:04→20:54)
[2022-09-30] MEDS: CHOLECALCIFEROL (VITAMIN D3) 2,000 UNIT TABLET PO SCH (10:09)
[2022-09-30] MEDS: HYDROCHLOROTHIAZIDE 25 MG TABLET (HCTZ) PO SCH (10:13)
[2022-09-30] MEDS: LINEZOLID 300 ML IV SCH ×2 (10:13→20:55)
[2022-09-30 10:29] LABS: ERYTHROCYTE SEDIMENTATION RATE 45 MM/HR (0-20)
[2022-09-30 11:28] VITALS: BP_SYST 162
--- NOTE | 2022-09-30 12:07 | NUR ---
RN MEDICALLY CLEAR PATIENT FOR PT TREATMENT, HOWEVER PATIENT REFUSED TREATMENT.
[2022-09-30 13:02] LABS: BASOPHILS % (MANUAL) 0 % (0-2); EOSINOPHILS % (MANUAL) 0 % (0-7); LYMPHOCYTES % (MANUAL) 4 % (20-46); MONOCYTES % (MANUAL) 11 % (0-11)
[2022-09-30] MEDS: CEFTRIAXONE SOD 1 GM/ D5W 50 ML IV SCH ×2 (13:54)
[2022-09-30 15:22] VITALS: BP_SYST 114
--- NOTE | 2022-09-30 17:11 | NUR ---
Daughter at the bedside and asked if she could talk to Dr. Carroll. Also she asked if the patient can have a Salonpas for her Right neck pain. Advised daughter that we need to inform Dr. Carroll about the Salonpas and also will ask MD to call the patient's daughter to answer some of her questions. Spoke to Dr. Carroll with order to start patient on Lidocaine patch 5% daily and also gave Dr. Carroll the number for the daughter. Order made, noted, and carried out.
[2022-09-30] MEDS ORDERED: LIDOCAINE PATCH 5% 1 EA TP ONE (17:30)
[2022-09-30] MEDS: GABAPENTIN 100 MG CAPSULE PO SCH (18:36)
[2022-09-30 19:00] VITALS: BP_SYST 134
--- NOTE | 2022-09-30 20:00 | NUR ---
PATIENT AWAKE ALERT AND VERBALLY RESPONSIVE.A&O X2 UZBEK SPEAKING. ABLE TO MAKE NEEDS KNOWN. ADMITTED WITH DX: SEPSIS,SEIZURES, AMS, AND UTI. PATIENT HAS HX: DEMENTIA, HTN, BRAIN CA, INSOMNIA, GERD. PATIENT BREATHING EVEN AND NON LABORED. NO SOB/ DYSPNEA. PATIENT DEAF. ASSISTED WITH TOILETING PATIENT INCONTINENT B&B. PATIENT TOLERATING PUREE DIET WELL. NO S/S ASPIRATION. HOB ELEVATED. PT CONTINUED ON IV ATB ORDERED. NO ADVERSE REACTIONS FROM ATB THERAPY NOTED. IV SITE PATENT. IV DRSG CLEAN, DRY, AND INTACT. PATIENT TURNED AND REPOSITIONED Q2H. PATIENT DENIES PAIN. VS WNL. CALL LIGHT IN REACH. BED LOCKED IN LOWEST POSITION. WHITEBOARD/ PAPER/PEN USED TO COMMUNICATE WITH PATIENT. PATIENT RESPONDS WELL. SAFETY MEASURES OBSERVED. ALL NEEDS MET.CONTINUE PLAN OF CARE.
[2022-09-30] MEDS: FAMOTIDINE 20 MG TABLET PO SCH (20:54)
[2022-09-30] MEDS: MELATONIN 5 MG TABLET PO SCH (22:21)
[2022-10-01 00:14] VITALS: BP_SYST 135
[2022-10-01] MEDS ORDERED: Lidocaine Patch 5% TP (03:35)
[2022-10-01] MEDS ORDERED: [UNRECOGNIZED DRUG - CODE] PO (03:35)
[2022-10-01] MEDS ORDERED: HCT25 PO (03:35)
[2022-10-01] MEDS ORDERED: [UNRECOGNIZED DRUG - CODE] IV (03:35)
[2022-10-01 04:00] VITALS: BP_SYST 136
[2022-10-01 04:18] LABS: INR 1.2 (0.8-1.2)
[2022-10-01 06:52] LABS: ANION GAP 4 (5-15); CHLORIDE 97 mmol/L (98-107); CREATININE 0.55 mg/dL (0.55-1.30); GLUCOSE 109 mg/dL (70-99); UREA NITROGEN, BLOOD 7 mg/dL (8-21)
[2022-10-01] MEDS: LACTULOSE 20 GM/30 ML UDC PO SCH ×4 (06:52→23:52)
[2022-10-01 07:02] LABS: BASOPHILS % (AUTO) 0.3 % (0.0-2.0); EOSINOPHILS # (AUTO) 0.1 K/uL (0.0-0.4); EOSINOPHILS % (AUTO) 0.8 % (0.0-4.0); HEMATOCRIT 33.7 % (36-48); HEMOGLOBIN 11.1 g/dL (12.0-16.0); LYMPHOCYTES # (AUTO) 1.4 K/uL (1.0-5.5); LYMPHOCYTES % (AUTO) 9.1 % (20.5-51.5); MEAN CORPUSCULAR HEMOGLOBIN 27 pg (27-31); MEAN CORPUSCULAR HGB CONC 33 % (32-36); MEAN CORPUSCULAR VOLUME 83 fL (79.0-98.0); MONOCYTES # (AUTO) 2.3 K/uL (0.0-1.0); MONOCYTES % (AUTO) 15.1 % (1.7-9.3); NEUTROPHILS # (AUTO) 11.3 K/uL (1.8-7.7); PLATELET COUNT (AUTO) 263 K/uL (130-430); RED BLOOD CELL COUNT(AUTO) 4.06 MIL/uL (4.2-6.2); WHITE BLOOD COUNT (AUTO) 15.1 K/uL (4.8-10.8)
[2022-10-01 07:18] LABS: NEUTROPHILS % (AUTO) 74.7 % (40.0-70.0)
[2022-10-01 08:12] LABS: C-REACTIVE PROTEIN QUANT 11.1 mg/dL (0-0.5)
[2022-10-01 08:22] LABS: ERYTHROCYTE SEDIMENTATION RATE 43 MM/HR (0-20)
[2022-10-01] MEDS: LINEZOLID 300 ML IV SCH ×2 (09:00→20:30)
[2022-10-01] MEDS: MULTIVITS,CA,MINERALS/IRON/FA 1 TABLET PO SCH (09:18)
[2022-10-01] MEDS: CALCIUM CARBONATE/VITAMIN D3 1 TAB TABLET PO SCH ×2 (09:18→20:29)
[2022-10-01] MEDS: SERTRALINE HCL 50 MG TABLET PO SCH (09:18)
[2022-10-01] MEDS: CHOLECALCIFEROL (VITAMIN D3) 2,000 UNIT TABLET PO SCH (09:18)
[2022-10-01] MEDS: HYDROCHLOROTHIAZIDE 25 MG TABLET (HCTZ) PO SCH (09:19)
[2022-10-01] MEDS: LOSARTAN POTASSIUM 50 MG TABLET (COZAAR) PO SCH (09:19)
[2022-10-01] MEDS: VERAPAMIL HCL 120 MG TABLET.SA PO SCH (09:19)
[2022-10-01] MEDS: LIDOCAINE PATCH 5% 1 EA TP SCH (09:20)
[2022-10-01 11:36] VITALS: BP_SYST 144
[2022-10-01] MEDS: CEFTRIAXONE SOD 1 GM/ D5W 50 ML IV SCH ×2 (14:00)
[2022-10-01 16:49] VITALS: BP_SYST 135
[2022-10-01] MEDS: GABAPENTIN 100 MG CAPSULE PO SCH (16:58)
[2022-10-01 20:00] VITALS: BP_SYST 150
[2022-10-01] MEDS ORDERED: POTASSIUM CHLORIDE 20 MEQ TAB.PRT.SR ONE (20:28)
[2022-10-01] MEDS: MELATONIN 5 MG TABLET PO SCH (20:29)
[2022-10-01] MEDS: FAMOTIDINE 20 MG TABLET PO SCH (20:30)
--- NOTE | 2022-10-01 23:42 | NUR ---
Patient in bed resting. Turned repositioned q2. No acute distress noted. Will continue to monitor.
[2022-10-02 00:45] VITALS: BP_SYST 154
[2022-10-02] MEDS: LACTULOSE 20 GM/30 ML UDC PO SCH ×3 (04:43→18:00)
--- NOTE | 2022-10-02 09:05 | NUR ---
INITIAL ROUNDS Received pt awake, confused, pt is deaf and uses an eraser board to communicate in [place]. No IV site noted-pt has order for a PICC line today. HOB elevated for aspiration precautions, Pt being fed her breakfast by nursing staffing coordinator. Pt repositioned with assist of VELVET WEAVER with pillow support and heels off-loaded, skin intact. Side rails up x3, bed alarm on and room across from nursing station for safety. Call light within reach.
[2022-10-02 09:18] VITALS: BP_SYST 157
[2022-10-02] MEDS: CHOLECALCIFEROL (VITAMIN D3) 2,000 UNIT TABLET PO SCH (10:29)
[2022-10-02] MEDS: MULTIVITS,CA,MINERALS/IRON/FA 1 TABLET PO SCH (10:29)
[2022-10-02] MEDS: CALCIUM CARBONATE/VITAMIN D3 1 TAB TABLET PO SCH ×2 (10:30→20:47)
[2022-10-02] MEDS: LOSARTAN POTASSIUM 50 MG TABLET (COZAAR) PO SCH (10:30)
[2022-10-02] MEDS: HYDROCHLOROTHIAZIDE 25 MG TABLET (HCTZ) PO SCH (10:30)
[2022-10-02] MEDS: LIDOCAINE PATCH 5% 1 EA TP SCH (10:31)
[2022-10-02] MEDS: SERTRALINE HCL 50 MG TABLET PO SCH (10:31)
[2022-10-02] MEDS: LINEZOLID 300 ML IV SCH ×2 (10:31→20:47)
[2022-10-02] MEDS: VERAPAMIL HCL 120 MG TABLET.SA PO SCH (10:31)
[2022-10-02 11:47] VITALS: BP_SYST 145
[2022-10-02 11:50] LABS: BASOPHILS # (AUTO) 0.1 K/uL (0.0-0.2); BASOPHILS % (AUTO) 0.6 % (0.0-2.0); EOSINOPHILS # (AUTO) 0.1 K/uL (0.0-0.4); EOSINOPHILS % (AUTO) 0.7 % (0.0-4.0); HEMATOCRIT 33.9 % (36-48); HEMOGLOBIN 11.2 g/dL (12.0-16.0); LYMPHOCYTES # (AUTO) 1.3 K/uL (1.0-5.5); LYMPHOCYTES % (AUTO) 10.1 % (20.5-51.5); MEAN CORPUSCULAR HEMOGLOBIN 27 pg (27-31); MEAN CORPUSCULAR HGB CONC 33 % (32-36); MEAN CORPUSCULAR VOLUME 83 fL (79.0-98.0); MONOCYTES # (AUTO) 1.6 K/uL (0.0-1.0); MONOCYTES % (AUTO) 12.7 % (1.7-9.3); NEUTROPHILS # (AUTO) 9.5 K/uL (1.8-7.7); PLATELET COUNT (AUTO) 290 K/uL (130-430); RED BLOOD CELL COUNT(AUTO) 4.09 MIL/uL (4.2-6.2); RED CELL DISTRIBUTION WIDTH 14.1 % (9.0-15.0); WHITE BLOOD COUNT (AUTO) 12.6 K/uL (4.8-10.8)
[2022-10-02 11:59] LABS: NEUTROPHILS % (AUTO) 75.9 % (40.0-70.0)
[2022-10-02 12:03] LABS: ERYTHROCYTE SEDIMENTATION RATE 56 MM/HR (0-20)
[2022-10-02 12:19] LABS: ANION GAP 3 (5-15); C-REACTIVE PROTEIN QUANT 19.1 mg/dL (0-0.5); CALCIUM 8.9 mg/dL (8.4-11.0); CHLORIDE 96 mmol/L (98-107); CREATININE 0.57 mg/dL (0.55-1.30); GLUCOSE 93 mg/dL (70-99); UREA NITROGEN, BLOOD 7 mg/dL (8-21)
--- NOTE | 2022-10-02 17:15 | NUR ---
PICC LINE PICC line placed to YANNICK, placement verified by cxr, okay to use.
[2022-10-02 17:20] VITALS: BP_SYST 155
[2022-10-02] MEDS: GABAPENTIN 100 MG CAPSULE PO SCH (18:17)
[2022-10-02] MEDS: CEFTRIAXONE SOD 1 GM/ D5W 50 ML IV SCH ×2 (18:17)
--- NOTE | 2022-10-02 19:25 | NUR ---
CLOSING NOTE Pt resting quietly in bed with no s/s resp distress, no c/o pain or discomfort, pt's daughter at bedside. Rocephin infusing well at ordered rate with no s/s infiltration to site. Site wrapped with kerlex wrap and IV line hidden behind pt's pillow to help prevent pt from pulling on the line. All precautions remain in place. Call light within reach.
[2022-10-02 20:00] VITALS: BP_SYST 145
[2022-10-02] MEDS: FAMOTIDINE 20 MG TABLET PO SCH (20:47)
[2022-10-02] MEDS: MELATONIN 5 MG TABLET PO SCH (20:47)
[2022-10-03 01:20] VITALS: BP_SYST 150
[2022-10-03] MEDS: LACTULOSE 20 GM/30 ML UDC PO SCH ×2 (05:16)
[2022-10-03 07:00] VITALS: BP_SYST 128
[2022-10-03 07:01] LABS: BASOPHILS % (AUTO) 0.3 % (0.0-2.0); EOSINOPHILS # (AUTO) 0.1 K/uL (0.0-0.4); EOSINOPHILS % (AUTO) 1.2 % (0.0-4.0); HEMATOCRIT 34.5 % (36-48); HEMOGLOBIN 11.5 g/dL (12.0-16.0); LYMPHOCYTES # (AUTO) 1.2 K/uL (1.0-5.5); LYMPHOCYTES % (AUTO) 9.6 % (20.5-51.5); MEAN CORPUSCULAR HEMOGLOBIN 27 pg (27-31); MEAN CORPUSCULAR HGB CONC 33 % (32-36); MEAN CORPUSCULAR VOLUME 82 fL (79.0-98.0); MONOCYTES # (AUTO) 1.7 K/uL (0.0-1.0); MONOCYTES % (AUTO) 13.5 % (1.7-9.3); NEUTROPHILS # (AUTO) 9.2 K/uL (1.8-7.7); PLATELET COUNT (AUTO) 310 K/uL (130-430); RED BLOOD CELL COUNT(AUTO) 4.19 MIL/uL (4.2-6.2); RED CELL DISTRIBUTION WIDTH 13.8 % (9.0-15.0); WHITE BLOOD COUNT (AUTO) 12.2 K/uL (4.8-10.8)
[2022-10-03 07:55] LABS: NEUTROPHILS % (AUTO) 75.4 % (40.0-70.0)
[2022-10-03 08:05] LABS: ALANINE AMINOTRANSFERASE 26 U/L (12-78); ALBUMIN 2.2 g/dL (3.4-4.8); ANION GAP 4 (5-15); ASPARTATE AMINOTRANSFERASE 18 U/L (10-37); C-REACTIVE PROTEIN QUANT 12.5 mg/dL (0-0.5); CALCIUM 8.7 mg/dL (8.4-11.0); CHLORIDE 96 mmol/L (98-107); CREATININE 0.59 mg/dL (0.55-1.30); GLUCOSE 105 mg/dL (70-99); TOTAL BILIRUBIN 0.4 mg/dL (0.0-1.0); UREA NITROGEN, BLOOD 8 mg/dL (8-21)
[2022-10-03 08:21] LABS: ERYTHROCYTE SEDIMENTATION RATE 65 MM/HR (0-20)
[2022-10-03] MEDS: CALCIUM CARBONATE/VITAMIN D3 1 TAB TABLET PO SCH (08:42)
[2022-10-03] MEDS: MULTIVITS,CA,MINERALS/IRON/FA 1 TABLET PO SCH (08:42)
[2022-10-03] MEDS: LINEZOLID 300 ML IV SCH (08:42)
[2022-10-03] MEDS: LOSARTAN POTASSIUM 50 MG TABLET (COZAAR) PO SCH (08:43)
[2022-10-03] MEDS: CHOLECALCIFEROL (VITAMIN D3) 2,000 UNIT TABLET PO SCH (08:43)
[2022-10-03] MEDS: VERAPAMIL HCL 120 MG TABLET.SA PO SCH (08:43)
[2022-10-03] MEDS: SERTRALINE HCL 50 MG TABLET PO SCH (08:43)
[2022-10-03] MEDS: LIDOCAINE PATCH 5% 1 EA TP SCH (08:44)
[2022-10-03] MEDS: HYDROCHLOROTHIAZIDE 25 MG TABLET (HCTZ) PO SCH (08:44)
--- NOTE | 2022-10-03 10:06 | NUR ---
Referral packet updated and sent back to [place] [facility]. Spoke with Cait LÓPEZ [id number]. Pt accepted. Bed 108A. Pt still needs a rapid Covid test. will fax when results are in . [facility] [place] notified of merchandise pickup/receiving associate time and to collect a rapid Covid test. Transportation booked with [facility]. [phone]. ETA merchandise pickup/receiving associate time is 14:00
[2022-10-03 10:19] VITALS: BP_SYST 184
[2022-10-03 10:22] VITALS: BP_SYST 184
[2022-10-03] MEDS ORDERED: FLUCONAZOLE 100 mg/ NS 50 ML IV SCH (12:00)
--- NOTE | 2022-10-03 12:54 | NUR ---
faxed rapid covid results to Cait at [place] [phone] @ [phone] patient packet on unit.
--- NOTE | 2022-10-03 12:58 | NUR ---
Notifed patient lisandra Lopez [phone] of patient discharge back to [place] today. room 108A. pharmacy picking technician time ETA 2pm.
[2022-10-03 15:53] VITALS: BP_SYST 171
--- NOTE | 2022-10-03 16:05 | NUR ---
PHYSICAL THERAPY CO-SIGN The Physical Therapy Progress Notes documented by Weave Defect Charting Clerk have been reviewed. Reviewed/Co-Signed by: Florencio Preciado Documentation Done by:BUD RADFORD Addendum: 10/03/22 at 1605 by Florencio Preciado PT Amended: Links added.
== END 2022-10-03 16:15 | DRG 871 ==
LOC: SED 16:51 → STU 19:33 → SMU 09-29 18:27
PROVIDERS: ADMIT Preventive Medicine Preventive Medicine/Occupational Environmental Medicine; ATTEND Preventive Medicine Preventive Medicine/Occupational Environmental Medicine
PROC: 4A00X4Z Measurement of Central Nervous Electrical Activity, External Approach (ICD-10-PCS; principal; 2022-09-28)
PROC: 02HV33Z Insertion of Infusion Device into Superior Vena Cava, Percutaneous Approach (ICD-10-PCS; 2022-10-01)
DX: A41.9 Sepsis, unspecified organism (principal); G93.41 Metabolic encephalopathy; J69.0 Pneumonitis due to inhalation of food and vomit; N39.0 Urinary tract infection, site not specified; E87.20 Acidosis, unspecified; E87.1 Hypo-osmolality and hyponatremia; F03.90 Unspecified dementia, unspecified severity, without behavioral disturbance, psychotic disturbance, mood disturbance, and anxiety; E88.09 Other disorders of plasma-protein metabolism, not elsewhere classified; E87.6 Hypokalemia; J45.909 Unspecified asthma, uncomplicated; R13.10 Dysphagia, unspecified; I10 Essential (primary) hypertension; G47.00 Insomnia, unspecified; F32.A Depression, unspecified; Z20.822 Contact with and (suspected) exposure to COVID-19; K21.9 Gastro-esophageal reflux disease without esophagitis; D64.9 Anemia, unspecified; E11.65 Type 2 diabetes mellitus with hyperglycemia; G40.409 Other generalized epilepsy and epileptic syndromes, not intractable, without status epilepticus; B95.2 Enterococcus as the cause of diseases classified elsewhere; Z88.8 Allergy status to other drugs, medicaments and biological substances; Z85.841 Personal history of malignant neoplasm of brain; R56.9 Unspecified convulsions
CPT/HCPCS: 36415; 70450-TC; 71045; 76376; 80048; 80053; 80307; 81000; 82009; 82140; 82550; 83605; 84484; 85007; 85025; 85027; 85610-TC; 85651-TC; 85730-TC; 86140; 87040; 87081; 87086; 87186-TC; 92610-GN; 93005; 94760; 95816; 96365; 96367; 97110-GP; 97163-GP; 97530-GP; 99291; G0378; G0480; G0481; G0482; J0696; J1450; J2020; J2060; J2543; J3490; J7050; J7060